=== PATIENT | female | born 1970 | race Two or more races ===

== ENCOUNTER 2017-06-24 15:39 | Outpatient (CLI) | payer OTHER ==
[~2017-06-24 15:39] MED LIST changes: -ALBUTEROL2.5 MG/3 M IH; -AZITHROMYCIN500 MG; -IPRATROPIU0.2 MG/1 M IH; -MEDROLPACK PO; -TESSALON PERLE100 M1 PO; -TUSSI PRES-B L120 M1 PO; -ULTRACET PO
== END 2017-06-24 15:46 | disposition home or self-care (01) ==
LOC: RAD 15:39
DX: J06.9 Acute upper respiratory infection, unspecified (principal)

== ENCOUNTER → 2017-06-24 | Outpatient (CLI) | payer OTHER ==
[~2017-06-24] MED LIST: ACTIGALL300 MG; ALBUTEROL2.5 MG/3 M IH; AZITHROMYCIN500 MG; IPRATROPIU0.2 MG/1 M IH; MEDROLPACK PO; TESSALON PERLE100 M1 PO; TUSSI PRES-B L120 M1 PO; ULTRACET PO
== END | disposition home or self-care (01) ==
LOC: PPHC 14:28
DX: J06.9 Acute upper respiratory infection, unspecified (principal)

== ENCOUNTER 2017-06-27 15:19 | Emergency (ER) | payer OTHER ==
[~2017-06-27] VITALS: Ht 160 cm; Wt 53.5 kg
[2017-06-27] MEDS ORDERED: AZITHROMYCIN500 MG (15:49)
[2017-06-28] MEDS ORDERED: ALBUTEROL2.5 MG/3 M IH (16:40)
[2017-06-28] MEDS ORDERED: ULTRACET PO (16:40)
[2017-06-28] MEDS ORDERED: IPRATROPIU0.2 MG/1 M IH (16:40)
[2017-06-28] MEDS ORDERED: TESSALON PERLE100 M1 PO (16:40)
[2017-06-28] MEDS ORDERED: MEDROLPACK PO (16:40)
[2017-06-28] MEDS ORDERED: TUSSI PRES-B L120 M1 PO (16:40)
== END 2017-06-28 17:27 | disposition home or self-care (01) ==
LOC: ER 15:19
DX: J45.998 Other asthma (principal)

== ENCOUNTER → 2017-07-11 | Outpatient (CLI) | payer OTHER ==
[~2017-07-11] MED LIST changes: +ALBUTEROL2.5 MG/3 M IH; +AZITHROMYCIN500 MG; +IPRATROPIU0.2 MG/1 M IH; +MEDROLPACK PO; +TESSALON PERLE100 M1 PO; +TUSSI PRES-B L120 M1 PO; +ULTRACET PO
== END | disposition home or self-care (01) ==
LOC: TOM 11:19
DX: R07.1 Chest pain on breathing (principal)

== ENCOUNTER 2018-01-27 15:46 | Outpatient (CLI) | payer OTHER | END 2018-01-27 15:53 | disposition home or self-care (01) | LOC: RAD 15:46 | DX: J45.41 Moderate persistent asthma with (acute) exacerbation (principal) ==

== ENCOUNTER 2019-05-16 15:47 | Emergency (ER) | payer OTHER ==
[~2019-05-16] VITALS: Ht 160 cm; Wt 53.5 kg
== END 2019-05-16 18:18 | disposition home or self-care (01) ==
LOC: ER 15:47
DX: R06.02 Shortness of breath (principal); T39.315A Adverse effect of propionic acid derivatives, initial encounter; Y92.89 Other specified places as the place of occurrence of the external cause